=== PATIENT | male | born 1960 | race Caucasian/White ===

== ENCOUNTER 2024-07-30 00:39 | Day surgery (SDC) | payer BC, SELFPAY ==
[2024-07-17 15:38] VITALS: BMI 26.2
--- OUTSIDE RECORDS SUMMARY | 2024-07-30 00:41 | XMS_ITS | Clinical Summary ---
Author Organization [facility] Address [address] [place] [address] Care Team Providers Care Block Engraver Name Role Phone Unavailable Primary Care Provider Unavailabl e Social History Tobacco Use Types Packs/Day Years Used Date Smoking Tobacco: Never Assessed Sex and Gender Information Value Date Recorded Sex Assigned at Not on file Legal Sex Male 7:37 PM CDT Gender Identity Not on file Sexual Orientation Not on file Plan of Treatment Health Maintenance Due Date Last Done Comments Colorectal Cancer Screening Colonoscopy (10 Years) 1961 Annual Physical 1964 Hepatitis C 1979 DTaP, Tdap and Td Vaccines ( 1 - Tdap) 1980 Pneumococcal Vaccine: 50+ Ye ars (1 of 1 - PCV) 2011 Zoster Vaccines (1 of 2) 2011 COVID-19 Vaccine ( - 2023-2 5 season) 2023 RSV Immunization or 60+ Years (1 - 1-dose 75+ series) 2036 Meningococcal B Vaccine Aged Out No l onger eligible based on patient's age to complete this topic Meningococcal Vaccine Aged Out No neo john eligible based on patient's age to complete this topic RSV Immunizations Under 20 Months Aged Out No longer eligible based on patient's age to complete this topic
[2024-07-30 07:18] VITALS: BP 131/83; PULSE 71; RESP 18; TEMP 36.1; O2SAT 100
[2024-07-30] MEDS: LACTATED RINGERS 1,000 ML 150 ML IV CONT (07:27)
--- NOTE | 2024-07-30 07:45 | P.PNAN_ITS ---
Anes - Initial Pre Proc Eval Procedure: Operation Date: 07/30/24 08:30 Proposed Procedures p Screening Colonoscopy - Amish Thomas MD Date/Time: 07/30/24 07:45 Surgeon: Amish Thomas MD Pre Op Diagnosis: screening Patient Data Age: 64 Gender: M Height: 1.8 m Weight: 84 kg Last Vital Signs Temp 36.1 C L 07/30/24 07:18 Pulse 71 07/30/24 07:18 Resp 18 07/30/24 07:18 BP 131/83 07/30/24 07:18 Pulse Ox 100 07/30/24 07:18 O2 Del Method Room Air 07/30/24 07:18 Allergies Allergy/AdvReac Type Severity Reaction Status Date / Time No Known Allergies Allergy Verified 07/30/24 07:17 Home Medications ?Medication ?Instructions ?Recorded ?Confirmed ?Type omeprazole 40 mg capsule,delayed 40 mg PO DAILY #90 caps 01/31/24 07/30/24 Rx release lisinopril 20 mg tablet 20 mg PO DAILY #90 tabs 06/10/24 07/30/24 Rx rosuvastatin 20 mg tablet 20 mg PO DAILY #90 tabs 07/17/24 07/30/24 Rx Patient hx anesthesia problems: none Family hx anesthesia problems: none Results Review: All pre-operative results and documents have been reviewed as part of the pre- operative evaluation. [facility] Past Medical History Medical History BMI 27.0-27.9,adult GERD without esophagitis BMI 25.0-25.9,adult BMI 27.0-27.9,adult Ulnar nerve compression COVID-19 BMI 26.0-26.9,adult Mixed hyperlipidemia Family History Family History Father Carcinoma of colon Grandparent Malignant neoplasm of prostate Acute myocardial infarction Mother Dementia Sibling Lymphoma Social History Social History Smoking status: Never smoker Second hand tobacco smoke exposure: Yes Alcohol intake: current Alcohol use details: 2 drinks a month, Occasional Substance use: never Substance use type: does not use Lack of Transportation: No Lack of Food: Never True Current Housing: I Have Housing Concerned About Future Housing: No Difficulty Paying Gas/Electric Bills: No Difficulty Paying for Meds: No Currently Unemployed: No Education: Bachelor's Degree Difficulty w/ Childcare or Family Care: No Living arrangements: with family Occupation/Education: occupation 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 Informed Consent: The patient's anesthetic plan and its attendant risks and benefits were discussed with the patient/family/POA. Questions were solicited and answers provided to the satisfaction of the patient/family/POA.
--- NOTE | 2024-07-30 08:28 | P.HP_ITS ---
H&P: HPI History of Present Illness Date/Time: 07/30/24 08:28 Chief Complaint: Family history of colon cancer Narrative: This patient has family history of colorectal cancer. his father had when he was 55 years old. He has been undergoing colonoscopy every 5 years since he was 41. Review of Systems Review of Systems: All systems reviewed & are unremarkable except as noted in HPI and below PMFSH Past Medical History Medical History BMI 27.0-27.9,adult GERD without esophagitis BMI 25.0-25.9,adult BMI 27.0-27.9,adult Ulnar nerve compression COVID-19 BMI 26.0-26.9,adult Mixed hyperlipidemia Family History Family History Father Carcinoma of colon Grandparent Malignant neoplasm of prostate Acute myocardial infarction Mother Dementia Sibling Lymphoma Social History Social History Smoking status: Never smoker Second hand tobacco smoke exposure: Yes Alcohol intake: current Alcohol use details: 2 drinks a month, Occasional Substance use: never Substance use type: does not use Lack of Transportation: No Lack of Food: Never True Current Housing: I Have Housing Concerned About Future Housing: No Difficulty Paying Gas/Electric Bills: No Difficulty Paying for Meds: No Currently Unemployed: No Education: Bachelor's Degree Difficulty w/ Childcare or Family Care: No Living arrangements: with family Occupation/Education: occupation 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 Gender identity (if verbalized by the patient): Male Spiritual care concerns: No Meds Home Medications and Allergies Home Medications ?Medication ?Instructions ?Recorded ?Confirmed ?Type omeprazole 40 mg capsule,delayed 40 mg PO DAILY #90 caps 01/31/24 07/30/24 Rx release lisinopril 20 mg tablet 20 mg PO DAILY #90 tabs 06/10/24 07/30/24 Rx rosuvastatin 20 mg tablet 20 mg PO DAILY #90 tabs 07/17/24 07/30/24 Rx Allergies Allergy/AdvReac Type Severity Reaction Status Date / Time No Known Allergies Allergy Verified 07/30/24 07:17 Vital Signs Vital Signs - 24 hr 07/30/24 07:18 Temperature 97 F L Pulse Rate 71 Respiratory Rate 18 Blood Pressure 131/83 Pulse Oximetry 100 Oxygen Delivery Room Air Exam Const: General: cooperative and healthy appearing Resp: Effort & Inspection: normal respiratory effort and able to speak in complete sentences Auscultation: clear to auscultation bilaterally Cardio: Rate: regular rate Rhythm: regular rhythm GI: Inspection: normal to inspection GI Palp: No No hepatosplenomegaly present Auscultation: normal bowel sounds Rectal Exam: deferred Skin: General skin exam: normal color Psych: Appearance: grossly normal Mental Status: mental status grossly no rmal Assessment and Plan Assessment and plan (1) Family history of colon cancer: Code(s): Z80.0 - Family history of malignant neoplasm of digestive organs Status: Acute Assessment and Plan: The patient is deemed a good candidate for the procedure. Consent signed. Will proceed.
[2024-07-30 08:53] VITALS: BP 126/53; PULSE 70; RESP 22; O2SAT 97
[2024-07-30 09:03] VITALS: BP 104/63; PULSE 63; RESP 17; O2SAT 98
[2024-07-30 09:13] VITALS: BP 149/83; PULSE 56; RESP 17; O2SAT 98
== END 2024-07-30 09:30 | disposition home or self-care (01) ==
PROVIDERS: PCP Family Medicine; Visit Provider Internal Medicine Gastroenterology
PROC: 0DJD8ZZ Inspection of Lower Intestinal Tract, Via Natural or Artificial Opening Endoscopic (ICD-10-PCS; CPT 45378; principal; 2024-07-30 08:30)
DX: Z12.11 Encounter for screening for malignant neoplasm of colon (principal); D12.3 Benign neoplasm of transverse colon; K63.5 Polyp of colon; K57.30 Diverticulosis of large intestine without perforation or abscess without bleeding; K64.8 Other hemorrhoids; Z80.0 Family history of malignant neoplasm of digestive organs
CPT/HCPCS: 45385; 88305; J2003; J2704; J7120